=== PATIENT | female | born 1965 | race Caucasian/White ===

== ENCOUNTER 2020-05-20 06:50 | Day surgery (SDC) | payer BC, SELFPAY ==
[2020-05-19 12:06] VITALS: BMI 22.3
[2020-05-20] VITALS (10 sets, daily range): BP systolic 92–123; BP diastolic 55–75; PULSE 66–88; RESP 12–18; TEMP 36.2–36.7; O2SAT 98–100
--- NOTE | 2020-05-20 07:35 | ANES.PREANE2 ---
Pre-Anesthetic Assessment Pre-Anesthetic Assessment: Height/Weight: Height 1.63 m Weight 58.967 kg Temp Pulse Resp BP Pulse Ox 97.9 F 88 18 123/75 99 05/20/20 07:16 05/20/20 07:16 05/20/20 07:16 05/20/20 07:16 05/20/20 07:16 Preop Diagnosis: Right-sided neck mass Proposed Procedure: Operation Date: 05/20/20 08:25 Proposed Procedures p Excision of rigth sided neck mass 71116 R59.9(Right) - Kolton Rod MD Familial anesthetic complications: None Was Beta Aletha taken within 24 hours: N/A Last intake: Intake Last Liquid Date 05/19/20 Last Liquid Time 22:30 Last Solid Date 05/19/20 Last Solid Time 20:30 Social: Social History: Tobacco and No alcohol Comment: Smoked marijuana yesterday Exam: Pre-Anes Outpt Exam: alert, oriented x 3, clear to auscultation bilaterally and regular rate & rhythm Airway: Cervical ROM: WNL MP: 1 Dentition: Partials Anesthetic Plan: ASA status: 1 Anesthesia: General Risk of > 500 ml blood loss (7ml/kg in children): No PFSH Anesthesia PFSH: Medical History (Updated 05/08/20 @ 10:04 by Kolton Rod MD) Enlarged lymph nodes Spleen enlargement Family History Denies family history of Anesthesia complication Bleeding disorder Social History Smoking and tobacco status: current every day smoker Quit status (tobacco): has tried quititng Second hand smoke exposure: No Desire information about substance/drug rehabilitation?: No Adopted: No Caregiver/support person: Yes Lives independently: Yes Household members: spouse Housing: House Marital status: Current occupational status: disabled Data Anesthesia Cardiac Studies: No Data to Display
[2020-05-20] MEDS: sodium chloride 0.9% 1,000 ML 30 ML IV (07:39)
--- NOTE | 2020-05-20 09:03 | W.PM.OPSUD ---
Surgery/Procedure H&P Update DATE OF PROCEDURE: May 20, 2020 DATE H&P PERFORMED: 05/08/20 H&P UPDATE INFORMATION: I have reviewed H&P completed within last 30 days, I have examined patient prior to procedure and No changes to prior documentation PREOP DIAGNOSIS: Right-sided neck mass PRIMARY INDICATION FOR PROCEDURE: The same PLANNED PROCEDURE: Operation Date: 05/20/20 08:25 Proposed Procedures p Excision of rigth sided neck mass 98567 R59.9(Right) - Kolton Rod MD
[2020-05-20] MEDS: lidocaine 2% INJ 20 mL INJECTION (10:27)
--- NOTE | 2020-05-20 10:28 | P.OP_ITS ---
Operative Report Date of procedure: May 20, 2020 Pre-op Diagnosis: Right-sided neck mass Post-op diagnosis: same Post-op Findings: Enlarged right cervical lymphadenopathy of the posterior triangle Procedure Done: Excision of enlarged cervical lymph nodes Specimens removed/disposition: Specimen cup #1 lymph node sections sent for lymphoma cell line fresh Specimen cup #2 lymph node section sent for permanent pathology in formalin Specimen cup #3 lymph node section sent for cultures and sensitivities Surgeon: Kolton Rod Sales Management Intern: Surgical rakan Reyna Circulating nurse Heather Anesthesia: General (cannery worker Yoselin) Estimated blood loss (mL): 5 Condition: stable Disposition: same day Brief History: This is a pleasant 55 years old female patient with generalized lymphadenopathy for further evaluation patient gives history as well of remarkable splenomegaly. After thorough history physical examination and reviewing outside chart I did automobile travel club counselor the patient for right cervical lymph node biopsy to rule out lymphoma. And will send for permanent as well as for cultures and sensitivities Procedure: After identifying the patient holding area, the correct site and side was marked before the procedure by myself, right side of the neck, patient was then taken to the operative suite, was placed in supine position, IV propofol was given by the anesthesia provider and patient was intubated,Timeout was done verifying the patient's name/date of /planned procedure and destination after the procedure, all were in agreement.SCDs confirmed to be functioning, preoperative antibiotics administered per protocol, and beta osmar protocol was confirmed Prep and drape of the right neck region was done under the usual sterile technique. Local anesthesia 2% lidocaine was infiltrated site of the incision overlying the right side of the, skin incision was done all the way down to the subcutaneous tissues dissection through the platysma was then carried on, I was able to identify enlarged lymph node 2 x 1 cm and another lymph node located cephalad less than 1 cm in diameter both were located beneath the muscle layer. Both were dissected and mini vascular clips were applied for appropriate hemostasis and lymph nodes were passed to the back table, where I personally cut the lymph nodes and divided them as follows: Specimen cup #1 lymph node sections sent for lymphoma cell line fresh Specimen cup #2 lymph node section sent for permanent pathology in formalin Specimen cup #3 lymph node section sent for cultures and sensitivities All neurovascular structures were intact Hemostasis was achieved using Bovie cautery, followed by irrigation with normal saline, 3-0 Vicryl were used as an interrupted subdermal sutures and a subcuticular 4-0 Monocryl used for closure by surgical glue and pressure dressing Count was completed at the end of the procedure Patient was taken to the recovery room in stable condition I was present for the whole entire procedure
--- NOTE | 2020-05-20 11:40 | ANE.PACU2 ---
Inpatient post-anesthesia follow up: Airway intact: Yes Vital signs: Temperature 98.1 F Pulse Rate 76 Respiratory Rate 18 Blood Pressure 115/75 Pulse Oximetry 99 Oxygen Delivery Me thod Room Air Oxygen Flow Rate 6 Fraction of Inspir ed Oxygen Hydration adequate: Yes Nausea and vomiting: No Pain level: 2 Mental status: Baseline
[2020-05-29 12:42] LABS: Miscellaneous Test See Scanned Lab Rpt
== END 2020-05-20 11:44 | disposition home or self-care (01) ==
PROVIDERS: PCP Family Medicine; Visit Provider Surgery
PROC: (CPT 38510; principal; 2020-05-20 08:15)
DX: R59.0 Localized enlarged lymph nodes (principal); R16.1 Splenomegaly, not elsewhere classified; F17.200 Nicotine dependence, unspecified, uncomplicated
CPT/HCPCS: 38510; 12345; 87070; 87077; 87176; 87186; 87205; 88305; J0690; J1100; J2250; J2405; J3010; J7030